=== PATIENT | male | born 1985 | race Caucasian/White ===

== ENCOUNTER → 2017-04-08 20:11 | Emergency (ER) | payer SELFPAY ==
--- NOTE | 2017-04-08 21:15 | ED ---
Shauna Curiel Alfonso, scribed for Yung Xiong MD on 04/08/17 at 2032 . Syncope/Near Syncope - HPI Summary HPI Summary: This patient is a 31 year old male BIBA with police to [facility] for a syncopal episode 30 minutes ago. He was unconscious for a few minutes and did not respond to sternal rubbing per police. He is ETOH intoxicated, diaphoretic, vomiting, and has a dry throat. He denies chest pain or SOB. Symptoms aggravated by nothing and alleviated by spontaneous resolution. He was arrested at the [facility] for removing a rearview mirror off a car and attempting to break the car window. Patient denies any other substance use today. - History Of Current Complaint Chief Complaint: EDSubstanceAbuse Hx Obtained From: Patient, Other: - Police Onset/Duration: Sudden Onset, Lasting Minutes - A few minutes, Resolved Timing: Constant Context: Witnessed - By police Activity At Onset: Other - Arrested and in police custody Aggravating Factor(s): Nothing Alleviating Factor(s): Spontaneous Resolution Associated Signs And Symptoms: Diaphoresis, Vomiting, Other - Negative chest pain and SOB; Positive dry throat and ETOH intoxication PMH/Surg Hx/FS Hx/Imm Hx Sensory History: Denies: Hx Deafness Opthamlomology History: Denies: Hx Legally Blind Infectious Disease History: Denies: Traveled Outside the [place] in Last 30 Days - UNK - Family History Known Family History: Negative: Cardiac Disease, Diabetes Review of Systems Positive: Skin Diaphoresis Positive: Other - Positive dry throat Negative: Chest Pain Negative: Shortness Of Breath Positive: Vomiting Positive: Syncope Positive: Other - Positive ETOH intoxication All Other Systems Reviewed And Are Negative: Yes Physical Exam Triage Information Reviewed: Yes Vital Signs On Initial Exam: Initial Vitals Temp Pulse Resp BP Pulse Ox 97.7 F 100 20 121/74 97 04/08/17 20:26 04/08/17 20:26 04/08/17 20:26 04/08/17 20:26 04/08/17 20:26 Vital Signs Reviewed: Yes Appearance: Positive: Well-Appearing - aob Skin: Positive: Warm Head/Face: Positive: Normal Head/Face Inspection Eyes: Positive: JORDANA ENT: Positive: Hearing grossly normal Neck: Positive: Supple Respiratory/Lung Sounds: Positive: Breath Sounds Present Cardiovascular: Positive: RRR Abdomen Description: Positive: Nontender, Soft Bowel Sounds: Positive: Present Musculoskeletal: Positive: Strength/ROM Intact Neurological: Positive: Sensory/Motor Intact Psychiatric: Positive: Affect/Mood Appropriate Diagnostics - Vital Signs Vital Signs Temp Pulse Resp BP Pulse Ox 04/08/17 21:00 93 117/71 100 04/08/17 20:37 104 21 99 04/08/17 20:35 122/69 04/08/17 20:26 97.7 F 100 20 121/74 97 - Laboratory Lab Statement: Any lab studies that have been ordered have been reviewed, and results considered in the medical decision making process. Course/Dx - Diagnoses Provider Diagnoses: Alcohol intoxication Discharge - Discharge Plan Condition: Stable Disposition: HOME Patient Education Materials: Alcohol Intoxication (ED) Referrals: [facility] [place] PHYSICIAN REFERRAL [Outside] - 1 Week The documentation as recorded by the Shauna doyle Alfonso accurately reflects the service I personally performed and the decisions made by , Yung Xiong MD.
[2017-04-09 00:36] VITALS: BP 111/60
== END | disposition home or self-care (01) ==
LOC: ED 20:11
DX: F10.129 Alcohol abuse with intoxication, unspecified (principal); R11.10 Vomiting, unspecified; R55 Syncope and collapse
CPT/HCPCS: 36415; 80320; 99282; G0480